=== PATIENT | male | born 1980 | race Caucasian/White ===

== ENCOUNTER 2021-04-24 07:41 | Emergency (ER) | payer BC, OTHER ==
[2021-04-24] MEDS ORDERED: Naloxone 0.4 MG/ML SDV IVPUSH PRN ×4 (07:42→09:48)
[2021-04-24 08:00] LABS: PH VENOUS,POC 7.04 pH Units (7.32-7.43)
[2021-04-24 08:01] LABS: BASE EXCESS VENOUS,POC -12 mmol/L (-2-3); HCO3 VENOUS,POC 20 mmol/L (21-29); PCO2 VENOUS,POC 74 mmHg (41-51)
[2021-04-24] MEDS ORDERED: Sodium Chloride 0.9% 1,000 ML IV ONE ×2 (08:04→09:34)
--- NOTE | 2021-04-24 08:04 | EDM.PDOC ---
ED HPI GENERAL MEDICAL PROBLEM - General Stated Complaint: RAPID RESPONSE Time Seen by Provider: 04/24/21 07:41 Source of Information: Reports: Patient History Limitations: Reports: No Limitations - History of Present Illness INITIAL COMMENTS - FREE TEXT/NARRATIVE: c/o obtunded pt at girlfriend's house Bev, she found him on the floor unresponsive, EMS called EMS found him face down on floor, blue, minimal responsive, PO 65-70%, placed on NRB, became more responsive, not bagged or intubated at scene or at hospital pt was 99% on NRB on arrival with sonorous respiration, he moved himself from gurney to bed without assistance, talking in complete sentences, no assisted resp provided, educational program director at the bedside pt continued with sonorous respirations even with sitting position at 60 degrees Narcan 0.4 mg IV x 2 given as pt did state he uses Suboxone, adamantly denies street drugs mother in waiting room reports pt has used meth, not sure of current usage, not sure of other meds - Related Data Allergies Allergy/AdvReac Type Severity Reaction Status Date / Time Penicillins Allergy Other Verified 04/24/21 08:15 Sulfa (Sulfonamide Allergy Other Verified 04/24/21 08:15 Antibiotics) ED ROS GENERAL - Review of Systems Review Of Systems: See Below Constitutional: Reports: No Symptoms HEENT: Reports: No Symptoms Respiratory: Reports: Shortness of Breath Cardiovascular: Reports: No Symptoms Endocrine: Reports: No Symptoms GI/Abdominal: Reports: No Symptoms : Reports: No Symptoms Musculoskeletal: Reports: No Symptoms Skin: Reports: No Symptoms Neurological: Reports: No Symptoms Psychiatric: Reports: No Symptoms Hematologic/Lymphatic: Reports: No Symptoms Immunologic: Reports: No Symptoms ED EXAM, GENERAL - Physical Exam Exam: See Below Exam Limited By: Other (partially obtunded) General Appearance: Alert, WD/WN Eye Exam: Bilateral Eye: Other (pupils 3/3 mm conjugate) Ears: Hearing Grossly Normal Nose: Normal Inspection Throat/Mouth: Normal Inspection, Normal Lips, Normal Teeth, Normal Voice Head: Atraumatic, Normocephalic Neck: Normal Inspection, Supple, Non-Tender. No: Lymphadenopathy (R), Lymphadenopathy (L) Respiratory/Chest: Other (good AE, uses accessory muscles at time to overcome partial upper airway obstruction) Cardiovascular: No Edema, No Murmur, Tachycardia. No: No Gallop GI/Abdominal: Normal Bowel Sounds, Soft, Non-Tender, No Organomegaly, No Distention, Other (obese) Back Exam: Normal Inspection, Full Range of Motion. No: CVA Tenderness (R), CVA Tenderness (L) Extremities: Normal Inspection, Non-Tender, No Pedal Edema Neurological: Alert, CN II-XII Intact, No Motor/Sensory Deficits Skin Exam: Warm, Dry, Intact, Normal Color, No Rash Lymphatic: No Adenopathy #1 Interpretation EKG Date: 04/24/21 Time: 07:40 Rate (Beats/Min): 122 ST-T: Normal (tachy, reg, nonspecific t-wave flattening in I, III and L) QT: Normal Course - Vital Signs Last Recorded V/S: Last Vital Signs Temp 36.6 C 04/24/21 07:45 Pulse 119 H 04/24/21 07:45 Resp 10 L 04/24/21 07:45 BP 124/85 04/24/21 07:45 Pulse Ox 95 04/24/21 07:45 - Orders/Labs/Meds Orders: Active Orders 24 hr Category Date Time Status EKG Documentation Completion [RC] ASDIRECTED Care 04/24/21 07:49 Active Chest 1V Frontal [CR] Stat Exams 04/24/21 07:48 Ordered Chest 2V [CR] Stat Exams 04/24/21 08:15 Ordered Head wo Cont [CT] Stat Exams 04/24/21 07:58 Ordered BLOOD GAS VENOUS [BG] Stat Lab 04/24/21 08:21 Ordered CULTURE BLOOD [BC] Urgent Lab 04/24/21 08:05 Ordered CULTURE BLOOD [BC] Urgent Lab 04/24/21 08:05 Ordered CULTURE URINE [RM] Stat Lab 04/24/21 08:54 Ordered PRO B-TYPE NATRIUR PEPT,BNPPRO [CHEM] Stat Lab 04/24/21 08:42 Ordered TROPONIN I [CHEM] Timed Lab 04/24/21 09:43 Ordered Levofloxacin/Dextrose 5%-Water [Levaquin in D5W 750 MG/ Med 04/24/21 08:56 Ordered 150 ML] 750 mg Premix Bag 1 bag IV ONETIME Naloxone [Narcan] Med 04/24/21 07:42 Active 0.1 mg IVPUSH ONETIME PRN Naloxone [Narcan] Med 04/24/21 07:49 Active 0.1 mg IVPUSH ONETIME PRN Sodium Chloride 0.9% [Normal Saline] 1,000 ml Med 04/24/21 08:04 Ordered IV .BOLUS Blood Culture x2 Reflex Set [OM.PC] Urgent Oth 04/24/21 08:04 Ordered EKG 12 Lead [EK] Routine Ther 04/24/21 07:48 Ordered Medication Orders Sodium Chloride (Normal Saline) 1,000 mls @ 999 mls/hr IV .BOLUS ONE Stop: 04/24/21 09:04 Last Admin: 04/24/21 08:32 Dose: 999 mls/hr Documented by: MAYA Levofloxacin/Dextrose 750 mg/ (Premix) 150 mls @ 100 mls/hr IV ONETIME ONE Stop: 04/24/21 10:25 Naloxone HCl (Naloxone 0.4 Mg/Ml Sdv) 0.1 mg IVPUSH ONETIME PRN PRN Reason: Other Naloxone HCl (Naloxone 0.4 Mg/Ml Sdv) 0.1 mg IVPUSH ONETIME PRN PRN Reason: Other Labs: Laboratory Tests 04/24/21 04/24/21 04/24/21 Range/Units 07:43 07:43 07:43 WBC 10.0 (3.2-10.1) x10-3/uL RBC 4.61 (3.90-5.90) x10(6)uL Hgb 13.5 (12.9-17.7) g/dL Hct 41.7 (38.3-50.1) % MCV 90.5 (80.8-98.7) fL MCH 29.3 (27.0-33.3) pg MCHC 32.4 (28.7-35.3) g/dL RDW 14.1 (12.4-15.0) % Plt Count 389 (117-477) x10(3)uL MPV 7.0 (6.7-11.0) fL Neut % (Auto) 77.1 H (40.3-71.8) % Lymph % (Auto) 17.2 (15.8-45.3) % [place] % (Auto) 4.6 L (5.5-15.2) % Eos % (Auto) 0.5 (0.1-6.8) % Baso % (Auto) 0.6 (0.3-3.8) % Neut # (Auto) 7.7 H (1.7-6.9) x10-3/uL Lymph # (Auto) 1.7 (0.5-4.5) x10-3/uL [place] # (Auto) 0.5 (0.0-1.2) x10-3/uL Eos # (Auto) 0.0 (0.0-0.6) x10-3/uL Baso # (Auto) 0.1 (0.0-0.3) x10-3/uL POC VBG pH (7.32-7.43) pH Units POC VBG pCO2 (41-51) mmHg POC VBG HCO3 (21-29) mmol/L VBG Base Excess (-2-3) mmol/L O2 Delivery Device Sodium 144 (135-145) mmol/L Potassium 4.6 (3.5-5.3) mmol/L Chloride 102 (100-110) mmol/L Carbon Dioxide 22 (21-32) mmol/L BUN 19 H (7-18) mg/dL Creatinine 2.3 H* (0.70-1.30) mg/dL Est Cr Clr Drug Dosing TNP Estimated GFR (MDRD) 31 L (>60) BUN/Creatinine Ratio 8.3 L (9-20) Glucose 410 H* (80-116) mg/dL Hemoglobin A1c (<5.7) % Calcium 8.3 L (8.6-10.2) mg/dL Total Bilirubin 0.1 (0.1-1.3) mg/dL AST 38 H (5-25) IU/L ALT 65 H (12-36) U/L Alkaline Phosphatase 116 H (56-112) IU/L Troponin I 102.9 H* (4.0-60.3) pg/mL C-Reactive Protein 0.9 (0.5-0.9) mg/dL Total Protein 7.6 (6.0-8.0) g/dL Albumin 3.5 (3.5-5.2) g/dL Globulin 4.1 g/dL Albumin/Globulin Ratio 0.9 TSH, Ultra Sensitive (0.36-3.74) IU/mL Urine Color (YELLOW) Urine Appearance (CLEAR) Urine pH (5.0-6.5) Ur Specific [place] (1.010-1.025) Urine Protein (NEGATIVE) mg/dL Urine Glucose (UA) (NORMAL) mg/dL Urine Ketones (NEGATIVE) mg/dL Urine Occult Blood (NEGATIVE) Urine Nitrite (NEGATIVE) Urine Bilirubin (NEGATIVE) Urine Urobilinogen (NEGATIVE) mg/dL Ur Leukocyte Esterase (NEGATIVE) U Hyaline Cast (Auto) (NS) Urine RBC (0-5) Urine WBC (0-5) Ur Squamous Epith Cells (NS,R,O) Urine Bacteria (NS) Urine Opiates Screen (NEGATIVE) Ur Oxycodone Screen (NEGATIVE) Ur Propoxyphene Screen (NEGATIVE) Ur Barbituates Screen (NEGATIVE) Ur Tricyclics Screen (NEGATIVE) Ur Phencyclidine Scrn (NEGATIVE) Ur Amphetamine Screen (NEGATIVE) Urine MDMA Screen (NEGATIVE) U Benzodiazepines Scrn (NEGATIVE) U Cocaine Metab Screen (NEGATIVE) U Marijuana (THC) Screen (NEGATIVE) Ethyl Alcohol < 0.03 (<0.03) % 04/24/21 04/24/21 04/24/21 Range/Units 07:43 07:43 07:43 WBC (3.2-10.1) x10-3/uL RBC (3.90-5.90) x10(6)uL Hgb (12.9-17.7) g/dL Hct (38.3-50.1) % MCV (80.8-98.7) fL MCH (27.0-33.3) pg MCHC (28.7-35.3) g/dL RDW (12.4-15.0) % Plt Count (117-477) x10(3)uL MPV (6.7-11.0) fL Neut % (Auto) (40.3-71.8) % Lymph % (Auto) (15.8-45.3) % [place] % (Auto) (5.5-15.2) % Eos % (Auto) (0.1-6.8) % Baso % (Auto) (0.3-3.8) % Neut # (Auto) (1.7-6.9) x10-3/uL Lymph # (Auto) (0.5-4.5) x10-3/uL [place] # (Auto) (0.0-1.2) x10-3/uL Eos # (Auto) (0.0-0.6) x10-3/uL Baso # (Auto) (0.0-0.3) x10-3/uL POC VBG pH 7.04 L* (7.32-7.43) pH Units POC VBG pCO2 74 H (41-51) mmHg POC VBG HCO3 20 L (21-29) mmol/L VBG Base Excess -12 L (-2-3) mmol/L O2 Delivery Device Non rebr mask Sodium (135-145) mmol/L Potassium (3.5-5.3) mmol/L Chloride (100-110) mmol/L Carbon Dioxide (21-32) mmol/L BUN (7-18) mg/dL Creatinine (0.70-1.30) mg/dL Est Cr Clr Drug Dosing Estimated GFR (MDRD) (>60) BUN/Creatinine Ratio (9-20) Glucose (80-116) mg/dL Hemoglobin A1c 5.8 H (<5.7) % Calcium (8.6-10.2) mg/dL Total Bilirubin (0.1-1.3) mg/dL AST (5-25) IU/L ALT (12-36) U/L Alkaline Phosphatase (56-112) IU/L Troponin I (4.0-60.3) pg/mL C-Reactive Protein (0.5-0.9) mg/dL Total Protein (6.0-8.0) g/dL Albumin (3.5-5.2) g/dL Globulin g/dL Albumin/Globulin Ratio TSH, Ultra Sensitive 3.62 (0.36-3.74) IU/mL Urine Color (YELLOW) Urine Appearance (CLEAR) Urine pH (5.0-6.5) Ur Specific [place] (1.010-1.025) Urine Protein (NEGATIVE) mg/dL Urine Glucose (UA) (NORMAL) mg/dL Urine Ketones (NEGATIVE) mg/dL Urine Occult Blood (NEGATIVE) Urine Nitrite (NEGATIVE) Urine Bilirubin (NEGATIVE) Urine Urobilinogen (NEGATIVE) mg/dL Ur Leukocyte Esterase (NEGATIVE) U Hyaline Cast (Auto) (NS) Urine RBC (0-5) Urine WBC (0-5) Ur Squamous Epith Cells (NS,R,O) Urine Bacteria (NS) Urine Opiates Screen (NEGATIVE) Ur Oxycodone Screen (NEGATIVE) Ur Propoxyphene Screen (NEGATIVE) Ur Barbituates Screen (NEGATIVE) Ur Tricyclics Screen (NEGATIVE) Ur Phencyclidine Scrn (NEGATIVE) Ur Amphetamine Screen (NEGATIVE) Urine MDMA Screen (NEGATIVE) U Benzodiazepines Scrn (NEGATIVE) U Cocaine Metab Screen (NEGATIVE) U Marijuana (THC) Screen (NEGATIVE) Ethyl Alcohol (<0.03) % 04/24/21 04/24/21 Range/Units 08:15 08:15 WBC (3.2-10.1) x10-3/uL RBC (3.90-5.90) x10(6)uL Hgb (12.9-17.7) g/dL Hct (38.3-50.1) % MCV (80.8-98.7) fL MCH (27.0-33.3) pg MCHC (28.7-35.3) g/dL RDW (12.4-15.0) % Plt Count (117-477) x10(3)uL MPV (6.7-11.0) fL Neut % (Auto) (40.3-71.8) % Lymph % (Auto) (15.8-45.3) % [place] % (Auto) (5.5-15.2) % Eos % (Auto) (0.1-6.8) % Baso % (Auto) (0.3-3.8) % Neut # (Auto) (1.7-6.9) x10-3/uL Lymph # (Auto) (0.5-4.5) x10-3/uL [place] # (Auto) (0.0-1.2) x10-3/uL Eos # (Auto) (0.0-0.6) x10-3/uL Baso # (Auto) (0.0-0.3) x10-3/uL POC VBG pH (7.32-7.43) pH Units POC VBG pCO2 (41-51) mmHg POC VBG HCO3 (21-29) mmol/L VBG Base Excess (-2-3) mmol/L O2 Delivery Device Sodium (135-145) mmol/L Potassium (3.5-5.3) mmol/L Chloride (100-110) mmol/L Carbon Dioxide (21-32) mmol/L BUN (7-18) mg/dL Creatinine (0.70-1.30) mg/dL Est Cr Clr Drug Dosing Estimated GFR (MDRD) (>60) BUN/Creatinine Ratio (9-20) Glucose (80-116) mg/dL Hemoglobin A1c (<5.7) % Calcium (8.6-10.2) mg/dL Total Bilirubin (0.1-1.3) mg/dL AST (5-25) IU/L ALT (12-36) U/L Alkaline Phosphatase (56-112) IU/L Troponin I (4.0-60.3) pg/mL C-Reactive Protein (0.5-0.9) mg/dL Total Protein (6.0-8.0) g/dL Albumin (3.5-5.2) g/dL Globulin g/dL Albumin/Globulin Ratio TSH, Ultra Sensitive (0.36-3.74) IU/mL Urine Color Yellow (YELLOW) Urine Appearance Slightly cloudy (CLEAR) Urine pH 5.0 (5.0-6.5) Ur Specific [place] 1.030 H (1.010-1.025) Urine Protein 30 H (NEGATIVE) mg/dL Urine Glucose (UA) >1000 H (NORMAL) mg/dL Urine Ketones Negative (NEGATIVE) mg/dL Urine Occult Blood Large H (NEGATIVE) Urine Nitrite Negative (NEGATIVE) Urine Bilirubin Negative (NEGATIVE) Urine Urobilinogen Normal (NEGATIVE) mg/dL Ur Leukocyte Esterase Negative (NEGATIVE) U Hyaline Cast (Auto) Few H (NS) Urine RBC 10-20 H (0-5) Urine WBC 5-10 H (0-5) Ur Squamous Epith Cells Occasional (NS,R,O) Urine Bacteria Moderate H (NS) Urine Opiates Screen Negative (NEGATIVE) Ur Oxycodone Screen Negative (NEGATIVE) Ur Propoxyphene Screen Negative (NEGATIVE) Ur Barbituates Screen Negative (NEGATIVE) Ur Tricyclics Screen Negative (NEGATIVE) Ur Phencyclidine Scrn Negative (NEGATIVE) Ur Amphetamine Screen Negative (NEGATIVE) Urine MDMA Screen Negative (NEGATIVE) U Benzodiazepines Scrn Negative (NEGATIVE) U Cocaine Metab Screen Negative (NEGATIVE) U Marijuana (THC) Screen Negative (NEGATIVE) Ethyl Alcohol (<0.03) % Meds: Medications Generic Name Dose Route Start Last Admin Trade Name Leon PRN Reason Stop Dose Admin Sodium Chloride 1,000 mls @ 999 mls/hr 04/24/21 08:04 04/24/21 08:32 Normal Saline IV 04/24/21 09:04 999 mls/hr .BOLUS ONE Administration Levofloxacin/Dextrose 750 mg/ 150 mls @ 100 mls/hr 04/24/21 08:56 Premix IV 04/24/21 10:25 ONETIME ONE Naloxone HCl 0.1 mg 04/24/21 07:42 Naloxone 0.4 Mg/Ml Sdv IVPUSH ONETIME PRN Other Naloxone HCl 0.1 mg 04/24/21 07:49 Naloxone 0.4 Mg/Ml Sdv IVPUSH ONETIME PRN Other - Re-Assessments/Exams Free Text/Narrative Re-Assessment/Exam: 04/24/21 11:27 pt shows evidence of UTI and was given Zosyn as a precaution with BC x 2 pending altho does not appear to met septic criteria (no temp, no increase in CRP/WBC/segs) pt has had slow recovery from his severe AMITA with respiratory arrest Bev girlfriend x last 2m says he sleeps 12 hr during the week and 14 hr on the week, he "sleep all weekend", takes a nap as soon as gets home from work, works construction 8a to 5p, Mon to Fri pt [facility], he put the monitor on at home, sent the [facility] information, received CPAP but has not used it pt's ventilations drop into the single digits when he falls asleep here inc'd BNP c/w R-sided HF d/t pul HTN, would be a candidate for an echo and CV consult d/t Dr Plasencia hospitalist at [facility] (pt 80% service connected) who declined to accept d/t increase in trop which is almost certainly d/t NSTEMI from prolonged hypoxia [facility] pt [facility] Matthew, Dr Gardner hospitalist at [facility] accepted pt 04/24/21 12:23 room assignment complete pt sleeping with RR 8-9, O2 inc'd to 4 l/min d/t hypoventilation and hypoxia when sleeping, pt may have Pickwickian syndrome in additional AMITA RN to notify EMS Departure - Departure Time of Disposition: 12:24 Disposition: DC/Tfer to Acute Hospital 02 Condition: Fair Clinical Impression: Respiratory arrest, Anatomic airway obstruction, H/O sleep apnea, Sinus tachycardia, Acute renal insufficiency, Elevated troponin, Abnormal EKG, Hyperglycemia, Elevated liver function tests, Mild dehydration, NSTEMI, initial episode of care - Discharge Information *PRESCRIPTION DRUG MONITORING PROGRAM REVIEWED*: Yes *COPY OF PRESCRIPTION DRUG MONITORING REPORT IN PATIENT ROSAURA: No Sepsis Event Note (ED) - Focused Exam Vital Signs: Vital Signs Temp Pulse Resp BP Pulse Ox 04/24/21 07:45 36.6 C 119 H 10 L 124/85 95 - My Orders Last 24 Hours: My Active Orders 04/24/21 07:42 Naloxone [Narcan] 0.1 mg IVPUSH ONETIME PRN 04/24/21 07:48 Chest 1V Frontal [CR] Stat EKG 12 Lead [EK] Routine 04/24/21 07:49 EKG Documentation Completion [RC] ASDIRECTED Naloxone [Narcan] 0.1 mg IVPUSH ONETIME PRN 04/24/21 07:58 Head wo Cont [CT] Stat 04/24/21 08:04 Sodium Chloride 0.9% [Normal Saline] 1,000 ml IV .BOLUS Blood Culture x2 Reflex Set [OM.PC] Urgent 04/24/21 08:05 CULTURE BLOOD [BC] Urgent CULTURE BLOOD [BC] Urgent 04/24/21 08:15 Chest 2V [CR] Stat 04/24/21 08:21 BLOOD GAS VENOUS [BG] Stat 04/24/21 08:42 PRO B-TYPE NATRIUR PEPT,BNPPRO [CHEM] Stat 04/24/21 08:54 CULTURE URINE [RM] Stat 04/24/21 08:56 Levofloxacin/Dextrose 5%-Water [Levaquin in D5W 750 MG/150 ML] 750 mg Premix Bag 1 bag IV ONETIME 04/24/21 09:43 TROPONIN I [CHEM] Timed - Assessment/Plan Last 24 Hours: My Active Orders 04/24/21 07:42 Naloxone [Narcan] 0.1 mg IVPUSH ONETIME PRN 04/24/21 07:48 Chest 1V Frontal [CR] Stat EKG 12 Lead [EK] Routine 04/24/21 07:49 EKG Documentation Completion [RC] ASDIRECTED Naloxone [Narcan] 0.1 mg IVPUSH ONETIME PRN 04/24/21 07:58 Head wo Cont [CT] Stat 04/24/21 08:04 Sodium Chloride 0.9% [Normal Saline] 1,000 ml IV .BOLUS Blood Culture x2 Reflex Set [OM.PC] Urgent 04/24/21 08:05 CULTURE BLOOD [BC] Urgent CULTURE BLOOD [BC] Urgent 04/24/21 08:15 Chest 2V [CR] Stat 04/24/21 08:21 BLOOD GAS VENOUS [BG] Stat 04/24/21 08:42 PRO B-TYPE NATRIUR PEPT,BNPPRO [CHEM] Stat 04/24/21 08:54 CULTURE URINE [RM] Stat 04/24/21 08:56 Levofloxacin/Dextrose 5%-Water [Levaquin in D5W 750 MG/150 ML] 750 mg Premix Bag 1 bag IV ONETIME 04/24/21 09:43 TROPONIN I [CHEM] Timed
[2021-04-24 08:33] LABS: HEMOGLOBIN A1C 5.8 % (<5.7)
[2021-04-24] MEDS ORDERED: Levofloxacin/Dextrose 5%-Water 750 MG in Premix Bag 1 BAG IV ONE (08:56)
[2021-04-24 09:36] LABS: BASE EXCESS VENOUS,POC -6 mmol/L (-2-3); HCO3 VENOUS,POC 24 mmol/L (21-29); PCO2 VENOUS,POC 71 mmHg (41-51); PH VENOUS,POC 7.14 pH Units (7.32-7.43)
[2021-04-24] MEDS ORDERED: Aspirin 325 MG Tab.EC PO ONE (11:32)
== END 2021-04-24 13:15 ==
LOC: FB.ED 07:41
DX: I21.4 Non-ST elevation (NSTEMI) myocardial infarction (principal); E86.0 Dehydration; R09.2 Respiratory arrest; R00.0 Tachycardia, unspecified; N17.9 Acute kidney failure, unspecified; R79.89 Other specified abnormal findings of blood chemistry; R94.31 Abnormal electrocardiogram [ECG] [EKG]; J98.8 Other specified respiratory disorders; Z88.0 Allergy status to penicillin; Z88.2 Allergy status to sulfonamides
CPT/HCPCS: 36415; 70450; 71045; 71046; 80053; 80305; 80307; 81001; 83036; 83880; 84443; 84484; 85025; 86140; 87040; 87086; 93005; 96365; 96375; 99285; A9270; J1956; J2310; J7030